=== PATIENT | male | born 1985 | race Caucasian/White ===

== ENCOUNTER 2021-09-28 10:06 | Emergency (ER) | payer OTHER, MEDICAID, SELFPAY ==
--- NOTE | 2021-09-28 11:06 | ED_ITS ---
HPI - GI Bleed General Chief complaint: Abdominal Pain Stated complaint: abdominal pain; blood in stool Time Seen by Provider: 09/28/21 11:05 History of Present Illness HPI Narrative: 36-year-old male nonsmoker, nondrinker with history of opioid abuse, on Suboxone presents with a chief complaint of left lower quadrant pain since last night that seems to be intensifying. He denies any history of the same. He states it came on rather suddenly and seems to gradually worsen until he has a loose, bloody bowel movement at which point it would improve for 10-15 minutes before building again. He also has increasing pain with movement and palpation. Improves with rest. He denies nausea, vomiting. He denies any new medications, recent antibiotics, use of blood thinners or NSAIDs. He denies urinary complaints such as dysuria, frequency or urgency. Related Data Previous Rx's Medication Instructions Recorded amoxicillin 875 mg-potassium 1 tab PO Q12H #20 tab 09/28/21 clavulanate 125 mg tablet hyoscyamine sulfate 0.125 mg tablet 0.125 mg PO BID-QID PRN #20 tab 09/28/21 ondansetron 4 mg disintegrating 4 mg PO TID-QID PRN #10 tab 09/28/21 tablet Allergies Allergy/AdvReac Type Severity Reaction Status Date / Time No Known Drug Allergies Allergy Verified 09/28/21 11:24 Review of Systems Review of Systems Narrative: GENERAL: Denies chills, fatigue, malaise, fever, sweats. HEENT: Denies sinus pain, ear pain, sore throat, difficulty swallowing, dizziness. RESPIRATORY: Denies dyspnea, cough, wheezing, hemoptysis, sputum. CARDIOVASCULAR: Denies chest pain, palpitations, orthopnea, edema, GASTROINTESTINAL: See HPI : Denies dysuria, frequency, incontinence, hematuria, urinary retention. MUSCULOSKELETAL: denies weakness, joint pain, or bony pain SKIN: Denies rash, skin lesions, or other NEUROLOGIC: Denies weakness, headache, numbness, change in speech, confusion, seizures, incoordination. PSYCHIATRIC: No concerning psychosocial issues. 12 point review of systems is negative except for those stated above Patient History Social History Smoking Status: Never smoker Exam Narrative Exam Narrative: GENERAL: [36] year old patient appears stated age. Well-developed patient, in mild distress. HEAD: Atraumatic. Normocephalic. EYES: Pupils equal round and reactive. Extraocular motions intact. No scleral icterus. No injection or drainage. ENT: Nose without bleeding, purulent drainage. Throat without erythema, tonsillar hypertrophy or exudate. Airway patent. NECK: Trachea midline. Non tender CARDIOVASCULAR: Regular rate and rhythm without murmurs, gallops, or rubs. RESPIRATORY: Clear to auscultation. Breath sounds equal bilaterally. No wheezes, rales, or rhonchi. GASTROINTESTINAL: Abdomen soft, left lower quadrant pain to palpation nondistended. EXTREMITIES: No edema or joint tenderness. BACK: Nontender without deformity or crepitance. No flank tenderness. NEURO: AOx3. SKIN: No rash or erythema of visible areas Initial Vital Signs Initial Vital Signs: Vital Signs Temperature 99.3 F 09/28/21 11:12 Pulse Rate 64 09/28/21 11:12 Respiratory Rate 16 09/28/21 11:12 Blood Pressure 147/95 H 09/28/21 11:12 Pulse Oximetry 99 09/28/21 11:12 Course Orders Ordered: ED Orders 09/28/21 11:00 Complete Blood Count AUTO DIFF Stat Comprehensive Metabolic Panel Stat 09/28/21 11:07 CT abdomen pelvis w con Stat Discontinued Medications Sodium Chloride (Normal Saline 0.9%) 1,000 mls @ 125 mls/hr IV CONT ERIN Last Infusion: 09/28/21 12:12 Dose: 0 mls/hr Documented by: Admin: 09/28/21 11:28 Dose: 125 mls/hr Documented by: STANISLAW Pantoprazole Sodium (Pantoprazole 40 Mg Vial) 40 mg IV NOW ONE Stop: 09/28/21 11:07 Last Admin: 09/28/21 11:28 Dose: 40 mg Documented by: STANISLAW Vital Signs Vital signs: Vital Signs - 8 hr 09/28/21 11:12 09/28/21 12:12 Temperature 99.3 F Pulse Rate 64 64 Respiratory Rate 16 16 Blood Pressure 147/95 H 134/83 Pulse Oximetry 99 100 MDM - GI Bleed Lab Data Result diagrams: 09/28/21 11:00 09/28/21 11:00 Labs: Lab Results 09/28/21 09/28/21 Range/Units 11:00 11:00 WBC 7.5 (4.5-11.0) X10^3/uL RBC 5.10 (4.5-5.9) X10^6/uL Hgb 15.0 (13.5-17.5) g/dL Hct 44.2 (41-53) % MCV 86.8 (80-100) fL MCH 29.5 (26-34) PG MCHC 34.0 (30-36) % RDW 12.9 (11.6-14.8) % Plt Count 262 (150-400) X10^3/uL Neut % (Auto) 66.9 (50-75) % Lymph % (Auto) 19.2 L (25-40) % Hemphill % (Auto) 13.2 (3-14) % Eos % (Auto) 0.1 L (2-4) % Baso % (Auto) 0.6 (0-2) % Neut # (Auto) 5000 (6344-1837) /uL Lymph # (Auto) 1400 (0671-8204) /uL Hemphill # (Auto) 1000 H (0-900) /uL Eos # (Auto) 0 (0-450) /uL Baso # (Auto) 0 (0-100) /uL Sodium 137 (137-145) mmol/L Potassium 4.3 (3.4-5.1) mmol/L Chloride 100 (98-107) mmol/L Carbon Dioxide 28 (22-32) mmol/L BUN 18 (9-20) mg/dL Creatinine 0.95 (0.66-1.25) mg/dL Estimated GFR > 60.0 (>60) mL/min BUN/Creatinine Ratio 18.9 (6-22) Glucose 102 H (70-100) mg/dL Calcium 9.2 (8.4-10.2) mg/dL Total Bilirubin 0.5 (0.2-1.3) mg/dL AST 40 (17-59) IU/L ALT 27 (<50) IU/L Alkaline Phosphatase 68 (38-126) U/L Total Protein 8.0 (6.3-8.2) g/dL Albumin 4.7 (3.5-5.0) g/dL Globulin 3.3 (1.7-4.1) g/dL Albumin/Globulin Ratio 1.4 (1.0-2.8) Imaging Data CT scan - abdomen/pelvis: Radiologist's Impression: Harsha Lock??36??M??1985 ? Allergy/Adv: No Known Drug Allergies Close Abdomen/Pelvis CT (Signed) Mc Santa - 09/28/21 Launch?[address] [address] [address] Scan Report Signed Patient: Harsha Lock MR#: [id number] : 1985 Acct:[id number] Age/Sex: 36 / M Date of Service: 09/28/21 Loc: ED Accession Number: [id number] ?? Procedure: CT abdomen pelvis w con Ordering Provider: Omar Woodall D.O. PROCEDURE:? CT ABDOMEN PELVIS W CON ? INDICATIONS:? severe LLQ pain ? TECHNIQUE:? After the administration of IV contrast, axial sections were acquired from the lung bases to the pubic symphysis.? Coronal and sagittal reformats were performed.? For radiation dose reduction, the following was used:? automated exposure control, adjustment of mA and/or kV according to patient size. ? COMPARISON:? None. ? FINDINGS:? Image quality:? Excellent.? ? Lung bases:? Unremarkable.? ? Heart:? No significant findings. ? ? ABDOMEN: Liver: Incidental note is made of focal fatty infiltration adjacent to the falciform ligament, which is not regarded to be pathologic.? The liver demonstrates normal size and demonstrates no suspicious lesions. Gallbladder:? Unremarkable.? ? Biliary ducts:? Unremarkable.? ? Pancreas:? Unremarkable.? ? Spleen:? Unremarkable.? ? Adrenal Glands:? Unremarkable.? ? Kidneys and Ureters:? Unremarkable.? ? ? Stomach and Bowel:? In this patient with this given history, scrutiny is given to left bowel.? There is generalized moderate wall thickening seen involving the descending colon and the proximal sigmoid colon, with surrounding inflammatory change.? ? A normal appendix is incidentally noted.? Peritoneum:? No abscess is detected.? No abnormal intraperitoneal fluid.? No free air.? ? Ventral Wall: ? No hernia.? Abdominal Nodes:? No retroperitoneal or mesenteric adenopathy by size criteria.? Vessels:? Aorta and inferior vena cava are normal in size.? ? PELVIS: Pelvic Organs:? Unremarkable.? ? Bladder:? Unremarkable.? ? Pelvic Nodes: No enlarged lymph nodes.? Miscellaneous: No inguinal hernias are seen. ? ? ? Bones:? Mild dextroconvex scoliotic curvature is seen.? ? ? IMPRESSION:? ? Moderate colonic wall thickening can be seen involving the descending colon and the proximal sigmoid colon.? Please correlate with potential infectious and inflammatory causes of colitis. ? No findings of perforation or abscess can be seen. ? ? ? Dictated by: Mc Santa M.D. on 09/28/2021 at 10:42 ? ? Approved by: Mc Santa M.D. on 09/28/2021 at 10:45 ? MDM Narrative Medical decision making narrative: Patient with reassuring history and physical exam. Labs are stable and vital signs reassuring. Imaging would suggest an infectious versus inflammatory condition consistent with colitis. Patient is tolerating orals, pain is well controlled, questions answered to his apparent satisfaction and return precautions discussed Discharge Plan Departure Patient Disposition: Home Clinical Impression: Colitis Instructions: DI for Colitis Activity Restrictions/Additional Instructions: *You have been diagnosed with [colitis. Thankfully your history and physical exam as well as labs and imaging are reassuring and there is no indication that you need admission to the hospital or surgical intervention. *What to do: *Please continue to take your regular medications as directed. [ x] New medication prescriptions sent to your pharmacy: [ [facility] in [place]] [ ] New medication written as a paper prescription [ ] No new medications given *Please follow up with your primary care provider in 2-3 days, call for an appointment. Let them know you were seen in the Emergency Department and that we ask that you be seen in follow up. We will electronically transmit a record of today's note if your PCP is in our system * please consider a clear liquid diet for the next 24-48 hours and then slowly advanced as tolerated *If you do not have a primary care provider please contact the [facility] Resource line at [phone]. They will ask some questions about your medical history and help get you set up with a doctor in the community. *Return to Emergency Department if you should have any new, worsening or concerning symptoms, such as [fever greater than 101 F, shaking chills, worsening pain, persistent vomiting or other bothersome symptoms] Prescriptions: New hyoscyamine sulfate 0.125 mg tablet 0.125 mg PO BID-QID PRN (Reason: dyspepsia) Qty: 20 0RF ondansetron 4 mg tablet,disintegrating 4 mg PO TID-QID PRN (Reason: nausea and vomiting) Qty: 10 0RF amoxicillin-pot clavulanate 875-125 mg tablet 1 tab PO Q12H Qty: 20 0RF Referrals: Jaqui Khan MD [Physician] -
--- NOTE | 2021-09-28 11:07 | DI.CT.S_ITS ---
PROCEDURE: CT ABDOMEN PELVIS W CON INDICATIONS: severe LLQ pain TECHNIQUE: After the administration of IV contrast, axial sections were acquired from the lung bases to the pubic symphysis. Coronal and sagittal reformats were performed. For radiation dose reduction, the following was used: automated exposure control, adjustment of mA and/or kV according to patient size. COMPARISON: None. FINDINGS: Image quality: Excellent. Lung bases: Unremarkable. Heart: No significant findings. ABDOMEN: Liver: Incidental note is made of focal fatty infiltration adjacent to the falciform ligament, which is not regarded to be pathologic. The liver demonstrates normal size and demonstrates no suspicious lesions. Gallbladder: Unremarkable. Biliary ducts: Unremarkable. Pancreas: Unremarkable. Spleen: Unremarkable. Adrenal Glands: Unremarkable. Kidneys and Ureters: Unremarkable. Stomach and Bowel: In this patient with this given history, scrutiny is given to left bowel. There is generalized moderate wall thickening seen involving the descending colon and the proximal sigmoid colon, with surrounding inflammatory change. A normal appendix is incidentally noted. Peritoneum: No abscess is detected. No abnormal intraperitoneal fluid. No free air. Ventral Wall: No hernia. Abdominal Nodes: No retroperitoneal or mesenteric adenopathy by size criteria. Vessels: Aorta and inferior vena cava are normal in size. PELVIS: Pelvic Organs: Unremarkable. Bladder: Unremarkable. Pelvic Nodes: No enlarged lymph nodes. Miscellaneous: No inguinal hernias are seen. Bones: Mild dextroconvex scoliotic curvature is seen. IMPRESSION: Moderate colonic wall thickening can be seen involving the descending colon and the proximal sigmoid colon. Please correlate with potential infectious and inflammatory causes of colitis. No findings of perforation or abscess can be seen. Dictated by: Mc Santa M.D. on 09/28/2021 at 10:42 Approved by: Mc Santa M.D. on 09/28/2021 at 10:45
[2021-09-28 11:12] VITALS: BP 147/95; PULSE 64; RESP 16; TEMP 37.4; O2SAT 99; BMI 24.3
[2021-09-28 11:28] LABS: Add Manual Diff / Slide Review NO; Basophils Absolute Auto 0 /uL (0-100); Basophils Percent Auto 0.6 % (0-2); Eosinophils Absolute Auto 0 /uL (0-450); Eosinophils Percent Auto 0.1 % (2-4); Hematocrit 44.2 % (41-53); Lymphocytes Absolute Auto 1400 /uL (1100-4500); Lymphocytes Percent Auto 19.2 % (25-40); Mean Corpuscular Hemoglobin 29.5 PG (26-34); Mean Corpuscular Volume 86.8 fL (80-100); Monocytes Absolute Auto 1000 /uL (0-900); Monocytes Percent Auto 13.2 % (3-14); Neutrophils Absolute Auto 5000 /uL (1500-7000); Neutrophils Percent Auto 66.9 % (50-75); Platelet Count 262 X10^3/uL (150-400); Red Cell Distribution Width 12.9 % (11.6-14.8); White Blood Cell Count 7.5 X10^3/uL (4.5-11.0)
[2021-09-28] MEDS: PANTOPRAZOLE 40 MG VIAL IV (11:28)
[2021-09-28] MEDS: SODIUM CHLORIDE 0.9% 1,000 ML 125 ML IV (11:28)
[2021-09-28 11:41] LABS: Alanine Aminotransferase 27 IU/L (<50); Albumin 4.7 g/dL (3.5-5.0); Albumin Globulin Ratio 1.4 (1.0-2.8); Alkaline Phosphatase 68 U/L (38-126); Aspartate Aminotransferase 40 IU/L (17-59); BUN Creatinine Ratio 18.9 (6-22); Bilirubin Total 0.5 mg/dL (0.2-1.3); Blood Urea Nitrogen 18 mg/dL (9-20); Calcium 9.2 mg/dL (8.4-10.2); Carbon Dioxide 28 mmol/L (22-32); Chloride 100 mmol/L (98-107); Estimated Glomerular Filt Rate > 60.0 mL/min (>60); Globulin 3.3 g/dL (1.7-4.1); Glucose 102 mg/dL (70-100); HEMOLYSIS < 15 (0-50); Potassium 4.3 mmol/L (3.4-5.1); Sodium 137 mmol/L (137-145)
[2021-09-28 12:12] VITALS: BP 134/83; PULSE 64; RESP 16; O2SAT 100
== END 2021-09-28 12:13 | disposition home or self-care (01) ==
PROVIDERS: Emergency Provider Emergency Medicine
DX: K52.9 Noninfective gastroenteritis and colitis, unspecified (principal)
CPT/HCPCS: 36415; 74177; 80053; 85025; 96374; 99284; C9113; Q9967